=== PATIENT | female | born 1945 | race Caucasian/White ===

== ENCOUNTER → 2025-01-12 11:31 | Outpatient (REF) | payer OTHER, SELFPAY | LOC: WDC 11:31 | PROVIDERS: ATTENDING PHYSICIAN Internal Medicine | DX: Z12.31 Encounter for screening mammogram for malignant neoplasm of breast (principal) | CPT/HCPCS: 77063; 77067 ==

== ENCOUNTER → 2025-10-26 13:41 | Outpatient (REF) | payer OTHER, SELFPAY ==
[2025-10-26 15:50] LABS: Hematocrit 40.5 % (37.0-47.0); Hemoglobin 13.1 g/dL (12.0-16.0); Mean Corp Hgb Conc. 32.3 g/dL (33.0-37.0); Mean Corpuscular Volume 89.2 fL (81.0-99.0); Nucleated Red Blood Cells % 0 %; Platelet Count 291 10^3/uL (130-400); Red Cell Dist. Width 12.3 % (11.5-14.5)
[2025-10-26 16:11] LABS: ALT (SGPT) 21 U/L (0-35); AST (SGOT) 25 U/L (14-36); Albumin 4.6 g/dl (3.5-5.0); Alkaline Phosphatase 78 U/L (38-126); Blood Urea Nitrogen 13 mg/dl (7-17); Calcium 9.9 mg/dl (8.4-10.2); Carbon Dioxide 29 mmol/L (22-30); Chloride 101 mmol/L (98-107); Glucose 102 mg/dl (70-99); Potassium 4.2 mmol/L (3.5-5.1); Sodium 137 mmol/L (135-145); Total Protein 7.4 g/dl (6.3-8.2); eGFR > 60.00
== END ==
LOC: REG 13:41
PROVIDERS: ATTENDING PHYSICIAN Nurse Practitioner Adult Health
DX: G44.86 Cervicogenic headache (principal); R41.82 Altered mental status, unspecified
CPT/HCPCS: 36415; 80053; 85025

== ENCOUNTER → 2025-10-27 09:27 | Outpatient (REF) | payer OTHER, SELFPAY | LOC: RAD 09:27 | PROVIDERS: ATTENDING PHYSICIAN Nurse Practitioner Adult Health | DX: G44.86 Cervicogenic headache (principal); R41.82 Altered mental status, unspecified | CPT/HCPCS: 70496; 70498; Q9967 ==

== ENCOUNTER → 2025-11-07 09:11 | Outpatient (REF) | payer OTHER, SELFPAY ==
[2025-11-07 10:27] LABS: HDL Cholesterol 62 mg/dl; LDL Cholesterol, Calculated 154 mg/dl; Very Low Density Lipoprotein 30 mg/dl (0-30)
[2025-11-07 10:54] LABS: TSH 1.92 uIU/ml (0.47-4.68)
[2025-11-07 11:15] LABS: Glycohemoglobin (HgbA1c) 5.6 % (4.0-5.9)
== END ==
LOC: REG 09:11
PROVIDERS: ATTENDING PHYSICIAN Nurse Practitioner Adult Health
DX: G45.9 Transient cerebral ischemic attack, unspecified (principal)
CPT/HCPCS: 36415; 80061; 83036; 84443; 93005

== ENCOUNTER → 2025-11-12 13:31 | Outpatient (REF) | payer OTHER, SELFPAY | LOC: PAVMRI 13:31 | PROVIDERS: ATTENDING PHYSICIAN Family Medicine | DX: G44.86 Cervicogenic headache (principal) | CPT/HCPCS: 70551 ==

== ENCOUNTER → 2025-11-22 14:36 | Outpatient (REF) | payer OTHER, SELFPAY | LOC: RCS 14:36 | PROVIDERS: ATTENDING PHYSICIAN Nurse Practitioner Adult Health; FAMILY PHYSICIAN Internal Medicine | DX: G45.9 Transient cerebral ischemic attack, unspecified (principal) | CPT/HCPCS: 93306 ==